=== PATIENT | male | born 1960 | race Caucasian/White ===

== ENCOUNTER → 2022-12-20 10:39 | Outpatient (BNVA) | payer MEDICAID, SELFPAY | PROVIDERS: PCP Family Medicine Adult Medicine; Visit Provider Family Medicine Adult Medicine | DX: M15.9 Polyosteoarthritis, unspecified (principal); E66.9 Obesity, unspecified; R60.0 Localized edema; Z00.00 Encounter for general adult medical examination without abnormal findings; Z86.69 Personal history of other diseases of the nervous system and sense organs | CPT/HCPCS: 80053; 80061; 84443; 85025; G0103 ==

== ENCOUNTER → 2023-02-19 13:16 | Outpatient (BNVA) | payer MEDICAID, SELFPAY | PROVIDERS: PCP Family Medicine Adult Medicine; Visit Provider Family Medicine Adult Medicine | DX: R73.09 Other abnormal glucose (principal); E78.5 Hyperlipidemia, unspecified | CPT/HCPCS: 83036 ==

== ENCOUNTER → 2024-05-01 14:18 | Outpatient (BNVA) | payer MEDICAID, SELFPAY | PROVIDERS: PCP Family Medicine; Visit Provider Family Medicine | DX: Z13.6 Encounter for screening for cardiovascular disorders (principal); Z12.5 Encounter for screening for malignant neoplasm of prostate | CPT/HCPCS: 80053; 80061; 84443; 85025; G0103 ==

== ENCOUNTER 2024-05-10 16:43 | Emergency (ER) | payer MEDICAID, SELFPAY ==
[2024-05-10 16:47] VITALS: BP 173/94; PULSE 78; RESP 18; TEMP 36.7; O2SAT 93; BMI 31.7
--- NOTE | 2024-05-10 16:56 | XRR_ITS ---
PROCEDURE INFORMATION: Exam: XR Left Finger(s) Exam date and time: 05/10/2024 5:02 PM Age: 63 years old Clinical indication: Injury or trauma; Other: Laceration to left middle finger; Injury details: PT presents with complaint of left middle finger laceration. PT states he picked up a concrete wall grinder operator and it cut his finger. PT arries with finger wrapped in cloth and bleeding controlled. PT denies any tetanus vax. PT has significant lac with tissue prodruding from laceration. ; Additional info: Deep lace left middle finger TECHNIQUE: Imaging protocol: Radiologic exam of the left fingers. Views: Minimum 2 views. COMPARISON: No relevant prior studies available. FINDINGS: Bones/joints: No acute displaced fracture or dislocation. Soft tissues: No unexpected radiopaque foreign bodies. Soft tissue defect surrounding 3rd digit. XR/XR finger LT min 2V [id number] IMPRESSION: 1. No acute displaced fracture or dislocation. 2. Soft tissue defect surrounding 3rd digit without unexpected radiopaque foreign bodies identified.
[2024-05-10] MEDS: HYDROcodone-acetaminophen 5-325 mg Tablet 2 TAB PO ×2 (17:24→18:15)
[2024-05-10] MEDS: ondansetron hcl ODT 4 mg Tab PO (17:24)
[2024-05-10] MEDS: cephALEXin 500 mg Capsule 1000 MG PO (17:24)
[2024-05-10] MEDS: BUPivacaine 0.5% INJ 10 mL INJECTION (17:25)
[2024-05-10] MEDS: naproxen 500 mg Tablet PO (17:25)
--- NOTE | 2024-05-10 18:03 | W.ED.WOUNDLC ---
HPI - Wound/Laceration General: Chief Complaint: Wound/Laceration Stated Complaint: L hand middle finger lac Time Seen by Provider: 05/10/24 16:54 History of Present Illness: 63-year-old right-handed male reports laceration to the dorsal aspect of his left middle finger that occurred 1 hour prior to arrival. Patient was using a broad metal cut off wheel on a profile grinder technician tool. Patient reports he does not want a tetanus shot or update. Patient is able to extend his left middle finger against resistance. He used some hydrogen peroxide at home prior to arrival in the wound. Pain is reported as moderate and more severe with palpation. Related Data Previous Rx's ?Medication ?Instructions ?Recorded cataract surgery right eye #1 ea 03/23/22 meloxicam 15 mg tablet 15 mg PO DAILY #30 tabs 05/03/24 cephalexin 500 mg capsule 500 mg PO QID 7 days #28 caps 05/10/24 hydrocodone 5 mg-acetaminophen 325 1 tab PO Q6H PRN pain (scale score 05/10/24 mg tablet 7-10) #12 tabs ondansetron 4 mg disintegrating 4 mg PO Q6H PRN nausea and 05/10/24 tablet vomiting #14 tabs Allergies Allergy/AdvReac Type Severity Reaction Status Date / Time No Known Allergies Allergy Verified 05/01/24 13:10 Review of Systems General: Reports: 10 or more systems reviewed and unremarkable except in HPI and below PFSH ED PFSH: Medical History Non-Romanian speaking patient Pre-diabetes HgbA1C 02/19/2023 5.9 Hyperlipidemia Health care maintenance 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 Obesity (BMI 35.0-39.9 without comorbidity) Onychodystrophy Bilateral lower extremity pain Cortical age-related cataract of right eye Osteoarthritis involving multiple joints on both sides of body Varicose veins of bilateral lower extremities with other complications Chronic venous stasis dermatitis of lower extremity Hearing loss Chronic pain of both knees Family History Father Renal insufficiency Mother Cancer Social History Smoking and tobacco/nicotine status: never used tobacco/nicotine Second hand smoke exposure: No Alcohol intake: current Alcohol intake frequency: holidays/special occasions only Alcohol type: hard liquor Substance/Drug Use: never Physical Exam Narrative: EXAM NARRATIVE: There is a tissue avulsion/laceration to the left middle finger. After anesthetizing the finger, I was able to retract the skin flap and there is visible tendon. There is a small area of damage to the extensor tendon on the radial strand of the extensor tendon. It is approximately 10 to 15% of the diameter of the tendon. The patient can extend his finger against resistance. There is a small amount of black particulate matter in the wound which is probably the pieces of cut off wheel. There is no bony involvement. Bleeding is mild to moderate. No arterial bleeding. Const: COMMON NORMALS: no limitations, alert and well nourished EXAM LIMITATIONS: no altered mental status HENMT: COMMON NORMALS: normocephalic, atraumatic and external ears normal HEAD & SCALP: normocephalic and atraumatic EXTERNAL EAR: Yes external ears normal MOUTH: no muffled voice Neck/C-Spine: GENERAL: Yes normal visual inspection and Yes trachea midline Resp: COMMON NORMALS: clear to auscultation bilaterally AUSCULTATION: clear to auscultation bilaterally Cardio: COMMON NORMALS: regular rate and regular rhythm RATE: regular rate RHYTHM: regular rhythm Neuro: COMMON NORMALS: moves all extremities, no focal motor deficits and no sensory deficits noted SENSORIUM/ORIENTATION: Yes alert SPEECH: speech normal Psych: COMMON NORMALS: mental status grossly normal, Normal thought process present, cooperative, normal affect and speech normal SPEECH: Yes normal speech THOUGHT PROCESS: Normal thought process present Procedures Laceration Laceration 1: Site: upper extremity (left finger, middle) Side (If applicable): left Size (cm): 3 Description: flap, irregular and contaminated (minimal but did have some small pieces of cutoff wheel debris) Depth: involves muscle layer and involves tendon Local Anesthetic: bupivacaine 0.5% Amount of anesthesia used (mL): 10 Pre-repair: wound explored, irrigated extensively (4L) and wound margins revised Skin layer closed with: other (4-0 prolene) Size (cm): 4-0 Number of sutures: 12 Technique: simple, interrupted and horizontal mattress Subcutaneous layer closed with: vicryl Size: 4-0 Number of sutures: 3 Technique: simple, interrupted Course Vital Signs: Vital signs: Vital Signs Temperature 98.1 F 05/10/24 16:47 Pulse Rate 87 05/10/24 18:24 Respiratory Rate 18 05/10/24 16:47 Blood Pressure 165/91 05/10/24 18:24 Pulse Oximetry 94 05/10/24 18:24 Oxygen Delivery Me thod Room Air 05/10/24 16:47 MDM - Wound/Laceration Medical Decision Making 1. Laceration with minor tendon involvement. -Finger extension is normal against resistance. Approximately 15% of the tendon diameter is affected. The rest is completely intact. -Wound was anesthetized. It was then irrigated copiously with 4 L of saline and reexamined. I picked out 2 more very small pieces of black foreign body. -X-ray was obtained and there is no residual foreign body nor any sign of fracture -There is avulsion of the skin and it is irregular. I did some trimming and was able to pull the wound together. However, had to use horizontal mattress sutures x 5 and simple interrupted x 2. The subcutaneous tissues were pulled together prior to closing the skin using 4-0 Vicryl times 3 whipstitches. -Discussed with Dr. Garzon who is willing to do a follow-up for the patient -I have dressed the wound and asked him to keep it in extension for 12 hours. After this he may begin doing gentle range of motion exercises to prevent any scarring or adhesion of the tendon to the wound -Follow-up at the end of this week with orthopedics. -Keflex was given here and will be prescribed Patient again declines tetanus. Lab Data Radiology Impressions Finger X-Ray 05/10/24 16:56 IMPRESSION: 1. No acute displaced fracture or dislocation. 2. Soft tissue defect surrounding 3rd digit without unexpected radiopaque foreign bodies identified. All radiology interpretation(s) finalized by discharge ED provider radiology interpretation(s): EP interpretation : I do not see any fracture. I do not see any foreign bodies. Discharge Plan Discharge Patient Disposition: Home Clinical Impression: Finger laceration involving tendon, Avulsion of skin of finger with tendon involvement Condition: Stable Prescriptions: New hydrocodone-acetaminophen 5-325 mg tablet 1 tab PO Q6H PRN (Reason: pain (scale score 7-10)) Qty: 12 0RF ondansetron 4 mg tablet,disintegrating 4 mg PO Q6H PRN (Reason: nausea and vomiting) Qty: 14 0RF cephalexin 500 mg capsule 500 mg PO QID 7 Days Qty: 28 0RF No Action (DME) cataract surgery right eye See Rx Instructions .Route .MEDSUPPLY Qty: 1 0RF Rx Instructions: To have cataract surgery right eye on 03/27/2022 meloxicam 15 mg tablet 15 mg PO DAILY Qty: 30 0RF Discharge Orders: Discharge ED (Routine); Ordered 05/10/24 Ordered By: Nirav Vazquez Referrals: Kianna Andrea MD [Physician] - 05/15/24 (Left middle finger lac, repeat eval) Rose Ruth DO [Primary Care Provider] - Patient Instructions: Laceration (ED), Opioid Safety, Pain Management Activity Restrictions/Additional Instructions: For the first 12 hours to try and keep your finger in extension to allow the bleeding to coagulate and the laceration to begin healing. After this, then you need to be doing gentle range of motion exercises at least 6 times per day. You may use the aluminum finger splint to help protect the laceration. However, it will need to be removed for the range of motion exercises. If you do not do the range of motion exercises, you could get scarring of the tendon to the tissues and limit your range of motion. Please follow-up with Dr. Andrea on or Saturday. Please call their office on Saturday to schedule an appointment. Please explain to them that Dr. Garzon agreed to see you in clinic. If you have signs of infection including redness, increasing pain, pus, fever then you need to return to the ER. Take the antibiotics as prescribed. Print Language: Bahraini Coding Level of Care Code ED [employer] for John Shi
[2024-05-10] MEDS: cephALEXin 500 mg Capsule 1500 MG PO (18:15)
[2024-05-10 18:24] VITALS: BP 165/91; PULSE 87; O2SAT 94
== END 2024-05-10 18:27 | disposition home or self-care (01) ==
PROVIDERS: Emergency Provider Emergency Medicine; PCP Family Medicine
DX: S61.213A Laceration without foreign body of left middle finger without damage to nail, initial encounter (principal); E78.5 Hyperlipidemia, unspecified; W26.8XXA Contact with other sharp object(s), not elsewhere classified, initial encounter
CPT/HCPCS: 13132; 73140; 99284; J3490; J9999; Q0162

== ENCOUNTER → 2024-05-18 10:23 | Outpatient (BNVA) | payer MEDICAID, SELFPAY | PROVIDERS: PCP Family Medicine; Visit Provider Nurse Practitioner | DX: S61.213A Laceration without foreign body of left middle finger without damage to nail, initial encounter (principal); W31.1XXA Contact with metalworking machines, initial encounter | CPT/HCPCS: 73130 ==